=== PATIENT | male | born 1955 | race Caucasian/White ===

== ENCOUNTER 2023-11-21 12:49 | Emergency (ER) | payer MEDICARE, BC ==
[2023-11-21 13:53] VITALS: BP 133/75; PULSE 80
== END 2023-11-21 13:20 | disposition home or self-care (01) ==
LOC: VM.ED 12:49
DX: S61.442A Puncture wound with foreign body of left hand, initial encounter (principal); W26.0XXA Contact with knife, initial encounter; Y92.009 Unspecified place in unspecified non-institutional (private) residence as the place of occurrence of the external cause; Y93.89 Activity, other specified; Z79.899 Other long term (current) drug therapy
CPT/HCPCS: 99283